=== PATIENT | male | born 1980 | race African-American/Black ===

== ENCOUNTER 2024-01-03 07:12 | Emergency (ER) | payer MEDICAID ==
[~2024-01-03] VITALS: Ht 182.9 cm; Wt 93.4 kg
[2024-01-03 07:44] VITALS: BP 133/92; PULSE 85; RESP 18; TEMP 99.8; O2SAT 96
[2024-01-03] MEDS ORDERED: IBUP1TAB5 PO (07:54)
[2024-01-03] MEDS: IBUPROFEN 600 MG TAB PO ONE (07:57)
== END 2024-01-03 08:06 | disposition home or self-care (01) ==
LOC: ER 07:12
DX: S80.12XA Contusion of left lower leg, initial encounter (principal); X58.XXXA Exposure to other specified factors, initial encounter; Y93.89 Activity, other specified; Y92.89 Other specified places as the place of occurrence of the external cause; Y99.8 Other external cause status